=== PATIENT | female | born 1950 | race Caucasian/White ===

== ENCOUNTER 2024-11-04 19:34 | Emergency (ER) | payer MEDICARE, OTHER ==
[~2024-11-04] VITALS: Ht 160 cm; Wt 60.0 kg
[2024-11-04] MEDS ORDERED: 0.9% SODIUM CHLORIDE 10 ML SYRINGE IVP PRN (20:15)
[2024-11-04] MEDS: ACETAMINOPHEN 1000 MG/ISO-OSM 100 ML IV ONE (20:24)
[2024-11-04] MEDS: SODIUM CHLORIDE 0.9% 1,000 ML IV ONE (20:24)
[2024-11-04 20:53] LABS: PLATELET COUNT (AUTO) 327 K/uL (150-450); RED BLOOD CELL COUNT(AUTO) 3.49 MIL/uL (4.00-5.20); RED CELL DISTRIBUTION WIDTH 16.2 % (11.5-14.5); WHITE BLOOD COUNT (AUTO) 14.0 K/uL (4.5-11.0)
[2024-11-04 21:00] LABS: COVID AG,FIA SOURCE NASAL SWAB
[2024-11-04 21:03] LABS: CALCIUM, TOTAL 8.5 mg/dL (8.8-10.5); CREATININE 0.78 mg/dL (0.60-1.30); GLOMERULAR FILTR. RATE CALC > 60 mL/min (>60); GLUCOSE,RANDOM 124 mg/dL (70-110); SODIUM SERUM 133 mmol/L (136-145); UREA NITROGEN, BLOOD 15 mg/dL (7-18)
[2024-11-04 21:05] LABS: PLATELET MORPHOLOGY COMMENT LARGE PLTS PRESENT; RBC MORPHOLOGY COMMENT NORMAL RBC MORPH
[2024-11-04 21:09] LABS: ASPARTATE AMINOTRANSFERASE 37 U/L (15-37); CREATINE KINASE, TOTAL ONLY 28 U/L (26-192); TOTAL PROTEIN, SERUM 7.5 g/dL (6.4-8.2)
[2024-11-04 21:12] LABS: TROPONIN I-HIGH SENSITIVITY 4 ng/L (<51)
[2024-11-04 21:15] LABS: LACTIC ACID 2.2 mmol/L (0.4-2.0)
[2024-11-04] MEDS: KETOROLAC TROMETHAMINE 30 MG/ML VIAL IVP ONE (21:19)
[2024-11-04] MEDS: PIPERACILLIN SODIUM/TAZOBACTAM 4.5 GM in DEXTROSE 5%-WATER 100 ML IV ONE (21:20)
[2024-11-04 21:21] LABS: INFLUENZA TYPE A NEGATIVE FOR TYPE A (NEGATIVE); INFLUENZA TYPE B NEGATIVE FOR TYPE B (NEGATIVE); SARS-COV2 (COVID) ANTIGEN,FIA Negative (Negative)
[2024-11-04 21:30] LABS: APPEARANCE,URINE CLEAR (CLEAR); GLUCOSE, URINE (UA) NEGATIVE (NEGATIVE); LEUKOCYTE ESTERASE ,URINE NEGATIVE (NEGATIVE); NITRATE,URINE NEGATIVE (NEGATIVE); OCCULT BLOOD,URINE NEGATIVE (NEGATIVE); SPECIFIC GRAVITIY, URINE 1.014 (1.003-1.030)
[2024-11-04] MEDS: VANCOMYCIN 1.25 GM/WATER(PEG) 250 ML IV ONE (22:13)
[2024-11-04] MEDS ORDERED: IOHEXOL 300 MG/ML 100 ML VIAL ONE (22:35)
[2024-11-05 02:20] VITALS: BP 107/63; PULSE 80; RESP 20; TEMP 97.6; O2SAT 97
== END 2024-11-05 03:45 | disposition short-term general hospital (02) ==
LOC: EMS 19:34
DX: R50.9 Fever, unspecified (principal); R53.83 Other fatigue; Z85.07 Personal history of malignant neoplasm of pancreas; Z20.822 Contact with and (suspected) exposure to COVID-19
CPT/HCPCS: 99285; 74177; 96365; 96367; 76705; 71045; 96366; 96375; 87426; 80048; 80076; 81003; 82550; 83605; 83690; 83880; 84484; 85025; 85610; 87040; 87804; 86850; 86900; 86901; 93005; 84145; 36415; J1885; J2543; J7060; J7030; J0131; Q9967; J3490